=== PATIENT | male | born 2000 | race Two or more races ===

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

== ENCOUNTER 2023-12-05 21:33 | Emergency (ER) | payer MEDICAID ==
[~2023-12-05] VITALS: Ht 182.9 cm; Wt 109.1 kg
[2023-12-05 21:41] VITALS: BP 156/99; PULSE 115; RESP 16; TEMP 98.7
[2023-12-06] MEDS ORDERED: HYDR30CR39 TP (00:09)
== END 2023-12-06 00:39 | disposition home or self-care (01) ==
LOC: EMS 21:34
DX: L20.9 Atopic dermatitis, unspecified (principal); J45.909 Unspecified asthma, uncomplicated; F12.90 Cannabis use, unspecified, uncomplicated; F15.90 Other stimulant use, unspecified, uncomplicated
CPT/HCPCS: 99282; Z7502

== ENCOUNTER 2024-10-03 23:28 | Emergency (ER) | payer MEDICAID ==
[~2024-10-03] VITALS: Ht 185.4 cm; Wt 109.1 kg
[~2024-10-03 23:28] MED LIST: HYDR30CR39 TP
[2024-10-03 23:32] VITALS: BP 129/92; PULSE 81; RESP 14; TEMP 98.6; O2SAT 97
[2024-10-04] MEDS ORDERED: CEPH-558 PO (01:12)
[2024-10-04] MEDS ORDERED: PERTUSS(ACELL),DIPH,TET/PF 0.5 ML SYRINGE [ADULT] IM. ONE (01:15)
[2024-10-04] MEDS: PERTUSS(ACELL),DIPH,TET/PF 0.5 ML SYRINGE [ADULT] IM. ONE (02:25)
== END 2024-10-04 02:28 | disposition home or self-care (01) ==
LOC: EMS 23:28
DX: T23.311A Burn of third degree of right thumb (nail), initial encounter (principal); J45.909 Unspecified asthma, uncomplicated; F12.90 Cannabis use, unspecified, uncomplicated; F15.90 Other stimulant use, unspecified, uncomplicated; T31.0 Burns involving less than 10% of body surface
CPT/HCPCS: 90471; 90715; 99283